=== PATIENT | male | born 1960 | race American Indian/Alaskan Native ===

== ENCOUNTER 2019-07-14 18:20 | Inpatient (IN) | payer MEDICARE ==
[2019-07-14] MEDS ORDERED: FAMOTIDINE 20 MG/2 ML INJ IV ONE (18:33)
[2019-07-14] MEDS ORDERED: diphenhydrAMINE 50 MG/ML VIAL ONE (18:34)
[2019-07-14] MEDS ORDERED: dexAMETHasone 20 MG/5 ML VIAL ONE ×2 (18:35→20:07)
[2019-07-14] MEDS ORDERED: diphenhydrAMINE 50 MG/ML VIAL IV ONE (18:38)
[2019-07-14] MEDS ORDERED: DEXTROSE 50% IN WATER (25GM) 50 ML SYRINGE IV ONE ×3 (18:38→18:42)
[2019-07-14] MEDS ORDERED: dexAMETHasone 20 MG/5 ML VIAL IV ONE (18:39)
[2019-07-14] MEDS ORDERED: PROPOFOL 1,000 MG/100 ML BOTTLE IV ONE (18:43)
[2019-07-14] MEDS ORDERED: LORazepam 2 MG/ML VIAL ONE (18:43)
[2019-07-14] MEDS ORDERED: LORazepam 2 MG/ML VIAL IV ONE (18:44)
[2019-07-14] MEDS ORDERED: ETOMIDATE 20 MG/10 ML INJ IV ONE (18:46)
[2019-07-14] MEDS ORDERED: SUCCINYLCHOLINE CHLORIDE 200 MG/10 ML INJ MDV IV ONE ×3 (18:47→19:09)
[2019-07-14] MEDS ORDERED: SODIUM CHLORIDE 0.9% 1000 ML 2,000 ML ONE (18:53)
[2019-07-14] MEDS ORDERED: PROPOFOL 200 MG/20 ML VIAL IV ONE ×4 (18:53→19:26)
[2019-07-14] MEDS ORDERED: SODIUM CHLORIDE 0.9% 1000 ML 1,000 ML IV ONE ×2 (19:09→19:30)
[2019-07-14] MEDS ORDERED: GLYCOPYRROLATE 0.4 MG/2 ML INJ IV ONE (19:50)
--- NOTE | 2019-07-14 20:22 | Emergency Department Report ---
ED General Adult HPI - General Chief complaint: Dyspnea/Respdistress Stated complaint: DIFFICULTY SWALLOWING Time Seen by Provider: 07/14/19 19:38 Source: patient, EMS Mode of arrival: Stretcher Limitations: No Limitations - History of Present Illness Initial comments: This is a 59-year-old male who states he's been on lisinopril for 15 years. Approximately one hour prior to arrival he developed swelling of his neck and somewhat gurgling respirations. He had a voice change. He complains of some difficulty in breathing. He is not frankly stridorous but is having trouble with his secretions. He has never had anything like this before. Associated Symptoms: denies other symptoms - Related Data Allergies Allergy/AdvReac Type Severity Reaction Status Date / Time lisinopril Allergy Angioedema Verified 07/14/19 19:17 ED Review of Systems ROS: Stated complaint: DIFFICULTY SWALLOWING Other details as noted in HPI Constitutional: denies: chills, fever Eyes: denies: eye pain, eye discharge, vision change ENT: other (difficulty with secretions). denies: ear pain, throat pain Respiratory: shortness of breath. denies: cough, wheezing Cardiovascular: denies: chest pain, palpitations Endocrine: no symptoms reported Gastrointestinal: denies: abdominal pain, nausea, diarrhea Genitourinary: denies: urgency, dysuria Musculoskeletal: denies: back pain, joint swelling, arthralgia Skin: denies: rash, lesions Neurological: denies: headache, weakness, paresthesias Psychiatric: denies: anxiety, depression Hematological/Lymphatic: denies: easy bleeding, easy bruising ED Past Medical Hx - Past Medical History Previous Medical History?: Yes Hx Hypertension: Yes - Social History Smoking Status: Unknown if ever smoked ED Physical Exam - General Limitations: Physical Limitation General appearance: obese - Head Head exam: Present: atraumatic, normocephalic - Eye Eye exam: Absent: scleral icterus - ENT ENT exam: Present: other (posterior pharynx looks slightly edematous) - Neck Neck exam: Present: other (some edema noted Submandibular area.. Difficulty with secretions noted no adrienne drooling.) - Respiratory Respiratory exam: Present: normal lung sounds bilaterally. Absent: respiratory distress - Cardiovascular Cardiovascular Exam: Present: regular rate, normal rhythm. Absent: systolic murmur, diastolic murmur, rubs, gallop - GI/Abdominal GI/Abdominal exam: Present: soft. Absent: distended, tenderness, guarding, rebound, rigid - Extremities Exam Extremities exam: Present: normal inspection - Back Exam Back exam: Present: normal inspection - Neurological Exam Neurological exam: Present: alert, oriented X3. Absent: CN II-XII intact, motor sensory deficit - Psychiatric Psychiatric exam: Present: normal mood, anxious ED Course Vital Signs 07/14/19 07/14/19 07/14/19 18:39 18:40 18:45 Pulse Rate 76 76 76 Respiratory 19 17 19 Rate Blood Pressure 126/63 126/63 O2 Sat by Pulse 100 100 100 Oximetry 07/14/19 07/14/19 07/14/19 18:50 18:56 19:00 Pulse Rate 63 118 H 103 H Respiratory 16 21 15 Rate Blood Pressure 130/58 157/84 152/84 O2 Sat by Pulse 48 L 100 100 Oximetry 07/14/19 07/14/19 07/14/19 19:06 19:10 19:15 Pulse Rate 96 H 123 H 119 H Respiratory 16 26 H 15 Rate Blood Pressure 152/84 79/41 242/135 O2 Sat by Pulse 71 L 90 81 L Oximetry 07/14/19 07/14/19 07/14/19 19:20 19:25 19:30 Pulse Rate 110 H 98 H 97 H Respiratory 11 L 11 L 10 L Rate Blood Pressure 135/86 118/84 85/61 O2 Sat by Pulse 100 100 100 Oximetry 07/14/19 07/14/19 07/14/19 19:35 19:40 19:45 Pulse Rate 85 84 86 Respiratory 13 16 18 Rate Blood Pressure 104/53 104/53 114/63 O2 Sat by Pulse 100 100 98 Oximetry 07/14/19 07/14/19 07/14/19 19:50 19:55 20:00 Pulse Rate 85 84 79 Respiratory 17 15 15 Rate Blood Pressure 121/72 136/69 123/75 O2 Sat by Pulse 100 100 Oximetry 07/14/19 07/14/19 07/14/19 20:06 20:10 20:16 Pulse Rate 76 75 81 Respiratory 17 20 16 Rate Blood Pressure 111/63 99/66 117/75 O2 Sat by Pulse 100 100 96 Oximetry 07/14/19 07/14/19 07/14/19 20:20 20:26 20:30 Pulse Rate 77 78 75 Respiratory 17 14 16 Rate Blood Pressure 125/83 138/92 151/101 O2 Sat by Pulse 97 100 100 Oximetry 07/14/19 07/14/19 07/14/19 20:36 20:40 20:46 Pulse Rate 73 76 77 Respiratory 11 L 13 15 Rate Blood Pressure 158/90 151/104 170/86 O2 Sat by Pulse 100 100 100 Oximetry 07/14/19 07/14/19 07/14/19 20:50 20:55 21:00 Pulse Rate 76 77 72 Respiratory 14 14 16 Rate Blood Pressure 164/84 149/70 144/82 O2 Sat by Pulse 100 100 100 Oximetry 07/14/19 07/14/19 07/14/19 21:06 21:10 21:16 Pulse Rate 73 75 73 Respiratory 13 17 16 Rate Blood Pressure 156/94 156/95 167/101 O2 Sat by Pulse 100 100 100 Oximetry 07/14/19 07/14/19 07/14/19 21:20 21:25 21:28 Pulse Rate 75 74 73 Respiratory 20 21 20 Rate Blood Pressure 179/95 176/89 172/84 O2 Sat by Pulse 100 100 100 Oximetry 07/14/19 21:30 Pulse Rate 72 Respiratory 19 Rate Blood Pressure 159/102 O2 Sat by Pulse 95 Oximetry - Reevaluation(s) Reevaluation #1: The patient anatomically appear to be an obvious difficult airway he denied his baseline. I prepared him for elective intubation. I also immediately engaged anesthesia services (2 anesthesiologists) to assist in the procedure. Initially we attempted direct laryngoscopy. This resulted in no airway view. Intubation wasn't possible via that route. We continued to assist the patient's airway. Next we attempted direct laryngoscopy which was initially successful placing a #8 tube. However the balloon ruptured in the attempt. One of the anesthesiologists attempted to change the tube using a bougie. This unfortunately resulted and dislodgment. We replaced an LMA. We attempted again with a glidescope. However the view was limited and the airway was too anterior and poorly visualized. We replaced the LMA. We attempted fiberoptic intubation. However the scope could not be passed into the airway which was again to anterior and poorly visualized using both the scope screen and the glidescope screen. We replaced the LMA. She had been given steroids Pepcid and Benadryl prior to the procedure. We found that he could be ventilated well using the LMA. We achieved pulse oximetries of 100% repeatedly with the LMA. While the patient was "satting" 100% I attempted to obtain consultation for definitive airway (surgical airway). It did not seem appropriate to perform a cricothyrotomy on the patient in the emergency department. This is because he was ventilating well with the LMA and achieving sats of 100%. He appeared to me to be a candidate for safe transfer after at least 30 minutes of successful ventilation without desaturation. I attempted transfer to [facility] and the [employer] system. Cowan was on saturation/bypass. The ENT surgeon at [facility] declined the [place]. He stated we should perform a cricothyrotomy here. Neither the anesthesiologists nor myself thought that was prudent. We were prepared to transfer the patient to the operating room for a definitive airway. However, no surgeon was available at this facility to perform a surgical airway in the operating room. Fortunately, the patient's airway situation appeared to be improving. I decided to remove the LMA and place the patient on BiPAP. The patient did wake up well from his propofol. I removed the LMA. The patient is placed on BiPAP. This has successfully oxygenated the patient. Blood gas was ordered. I discussed this case again with anesthesia. They recommended that we give him a unit of FFP. I will order that. The patient is very been admitted by the hospitalist service. He is currently in stable condition. 07/14/19 22:54 Reevaluation #2: Reexamination patient is able follow commands. He is doing well on BiPAP. Does not appear to be in any distress. He is resting comfortably. His blood gas was reasonably adequate. 07/14/19 23:21 ED Medical Decision Making - Lab Data Result diagrams: 07/14/19 20:59 07/14/19 20:59 Laboratory Results - last 24 hr 07/14/19 07/14/19 07/14/19 19:24 20:59 20:59 WBC 12.9 H RBC 5.44 H Hgb 12.0 Hct 39.0 MCV 72 L MCH 22 L MCHC 31 L RDW 17.4 H Plt Count 199 Lymph % (Auto) 6.2 L [place] % (Auto) 3.4 Eos % (Auto) 0.4 Baso % (Auto) 0.2 Lymph # 0.8 L [place] # 0.4 Eos # 0.0 Baso # 0.0 Seg Neutrophils % 89.8 H Seg Neutrophils # 11.6 H PT 13.6 INR 1.05 APTT 22.5 L POC ABG pH POC ABG pCO2 POC ABG pO2 POC ABG HCO3 POC ABG Total CO2 POC ABG O2 Sat POC ABG Base Excess FiO2 Sodium Potassium Chloride Carbon Dioxide Anion Gap BUN Creatinine Estimated GFR BUN/Creatinine Ratio Glucose POC Glucose 151 H Calcium Magnesium Total Bilirubin Direct Bilirubin Indirect Bilirubin AST ALT Alkaline Phosphatase Total Creatine Kinase CK-MB (CK-2) CK-MB (CK-2) Rel Index NT-Pro-B Natriuret Pep Total Protein Albumin Albumin/Globulin Ratio 07/14/19 07/14/19 20:59 22:28 WBC RBC Hgb Hct MCV MCH MCHC RDW Plt Count Lymph % (Auto) [place] % (Auto) Eos % (Auto) Baso % (Auto) Lymph # [place] # Eos # Baso # Seg Neutrophils % Seg Neutrophils # PT INR APTT POC ABG pH 7.326 L POC ABG pCO2 46.1 H POC ABG pO2 194 H POC ABG HCO3 24.1 POC ABG Total CO2 25 POC ABG O2 Sat 100 POC ABG Base Excess -2 FiO2 45 Sodium 133 L Potassium 4.2 Chloride 99.9 Carbon Dioxide 21 L Anion Gap 16 BUN 20 Creatinine 1.4 Estimated GFR > 60 BUN/Creatinine Ratio 14 Glucose 81 POC Glucose Calcium 8.4 Magnesium 1.90 Total Bilirubin 0.40 Direct Bilirubin < 0.2 Indirect Bilirubin 0.2 AST 23 ALT 11 Alkaline Phosphatase 88 Total Creatine Kinase 517 H CK-MB (CK-2) 5.1 H CK-MB (CK-2) Rel Index 0.9 NT-Pro-B Natriuret Pep 138.2 Total Protein 8.2 Albumin 4.1 Albumin/Globulin Ratio 1.0 Critical Care Time: Yes Critical care time in (mins) excluding proc time.: 120 Critical care attestation.: If time is entered above; I have spent that time in minutes in the direct care of this critically ill patient, excluding procedure time. ED Disposition Clinical Impression: Angioedema due to angiotensin converting enzyme inhibitor (DALE-I) Disposition: OP ADMIT IP TO THIS HOSP Is pt being admited?: Yes Does the pt Need Aspirin: No Condition: Stable Referrals: PRIMARY CARE, [Primary Care Provider] - 3-5 Days Time of Disposition: 23:23
[2019-07-14] MEDS ORDERED: LIP THERAPY VASELINE TP PRN (20:25)
[2019-07-14] MEDS ORDERED: MINERAL OIL/PETROLATUM, WHITE OPHTH OINT 3.5 GM OU PRN (20:25)
[2019-07-14] MEDS ORDERED: methylPREDNISolone Sod Succinate 125 MG/2 ML INJ IV ONE ×2 (20:26→20:52)
[2019-07-14] MEDS ORDERED: PROPOFOL 1,000 MG/100 ML BOTTLE IV SCH (21:00)
--- NOTE | 2019-07-14 21:13 | Event Note ---
Date: 07/14/19 Called to ED 22 by MD Zarate to assist with airway management of 59/yr male with angioedema. MD Zarate attempted to place an ET tube via DL. His first attempt failed. Pt noted with desaturation. The Pt was also noted with a swollen and bloody airway from the first attempt. Anesthesia took over and attempted to mask ventilate with an oral airway in place but was not obtaining satisfactory ventilation despite meds given. Subsequently an LMA 5 was used to regain adequate air exchange. The O2 saturation was brought to 100% and an 8.0 ET tube was successfully passed through the vocal cords under the use of a glidescope. The ET tube's cuff malfunctioned and anesthesia was unsuccessful at exchanging a new 8.0 ET tube via a bougie. An LMA 5 was replaced and adequate ventilation was resumed. The O2 saturation was noted at 100% when another unsuccessful Glidescope intubation and fiber optics intubation was attempted. MD Zarate made another attempt to DL after anesthesia was unsuccessful. MD Zarate placed an NG tube afterwards and removed it after failing to place it. Blood was noted in the nasal passage. Subsequently, MD Zarate decided to wake the pt up and place him on bipap while attempting to transfer the pt to another facility. Several facilities denied transfer because of diverted status. MD Riddle from general surgery was called in for a consult for tracheotomy . The pt was reevaluated by anesthesia at 2119 and was alert and oriented x 3. He was also noted with stable vitals and adequate ventilation while on bipap. He denied any pain or difficulty with breathing.
[2019-07-14 21:19] LABS: Mean Corpuscular Volume 72 fl (84-94); Red Blood Count 5.44 M/mm3 (3.65-5.03)
[2019-07-14 21:20] LABS: Basophils % (Auto) 0.2 % (0.0-1.8); Eosinophils % (Auto) 0.4 % (0.0-4.3); Lymphocytes # (Auto) 0.8 K/mm3 (1.2-5.4); Lymphocytes % (Auto) 6.2 % (13.4-35.0); Mean Corpuscular HGB Conc 31 % (32-34); Monocytes # (Auto) 0.4 K/mm3 (0.0-0.8); Monocytes % (Auto) 3.4 % (0.0-7.3); Platelet Count 199 K/mm3 (140-440); Red Cell Distribution Width 17.4 % (13.2-15.2)
[2019-07-14 21:27] LABS: INR 1.05 (0.87-1.13); Partial Thromboplastin Time 22.5 Sec. (24.2-36.6)
[2019-07-14 21:29] LABS: Creatine Kinase MB 5.1 ng/mL (0.0-4.0)
[2019-07-14 21:31] LABS: Alanine Aminotransferase 11 units/L (7-56); Albumin 4.1 g/dL (3.9-5); BUN/Creatinine Ratio 14; Blood Urea Nitrogen 20 mg/dL (9-20); Calcium 8.4 mg/dL (8.4-10.2); Hemolysis Index 22
[2019-07-14 21:33] LABS: Bilirubin,Direct < 0.2 mg/dL (0-0.2)
[2019-07-14] MEDS ORDERED: ONDANSETRON 4 MG/2 ML INJ IV PRN (21:37)
[2019-07-14] MEDS ORDERED: ACETAMINOPHEN 325 MG TAB PO PRN (21:37)
[2019-07-14] MEDS ORDERED: diphenhydrAMINE 50 MG/ML VIAL IV PRN (21:44)
[2019-07-14] MEDS ORDERED: DEXTROSE 50% IN WATER (25GM) 50 ML SYRINGE IV PRN (21:45)
--- NOTE | 2019-07-14 21:52 | XRay Report ---
CHEST 1 VIEW INDICATION / CLINICAL INFORMATION: CRYSTAL. COMPARISON: None available. FINDINGS: SUPPORT DEVICES: None. HEART / MEDIASTINUM: No significant abnormality. LUNGS / PLEURA: No significant pulmonary or pleural abnormality. No pneumothorax. ADDITIONAL FINDINGS: No significant additional findings. IMPRESSION: 1. No acute findings. Signer Name: Steve Gonzalez MD Signed: 07/14/2019 9:47 PM Workstation Name: [id number]
[2019-07-14] MEDS ORDERED: SODIUM CHLORIDE 0.9% 1000 ML 1,000 ML IV SCH (22:00)
[2019-07-14] MEDS ORDERED: MORPHINE 2 MG/1 ML INJ IV PRN (22:48)
--- NOTE | 2019-07-14 23:08 | History and Physical Report ---
History of Present Illness Date of examination: 07/14/19 Date of admission: 07/14/19 21:37 Chief complaint: SOB History of present illness: Patient is a 59-year-old -Swiss male with history of hypertension and DM2 who presented to the ED on account of a day history of worsening shortness of breath. Patient stated that he woke from sleep with inability to breathe and feeling like his throat was closing in on him. He reported having some lips swelling during the day. He also complained of dry throat. He denied chest pain, palpitation, fever, chills, cough, headaches, lightheadedness, syncope or loss of consciousness. Pt denies recent exposure to food allergen. However, he admits to 15years of lisinopril use without prior issues. In the ED, several attempts were made to intubate the patient which were unsuccessful. Subsequently, patient improved after IV steroids. He was then placed on BiPAP and has been saturating well. Past History Past Medical History: diabetes, hypertension, other (morbid obesity) Past Surgical History: appendectomy Social history: smoking (patient is an ex-cigarette smoker. He quit in 1988), alcohol abuse (patient abused alcohol for 30 years but quit in 2012), other (He smoked crack cocaine and marijuana for 2yrs but quit in 1988) Family history: diabetes (mother and sister ) Medications and Allergies Allergies Allergy/AdvReac Type Severity Reaction Status Date / Time lisinopril Allergy Angioedema Verified 07/14/19 19:17 Active Meds: Active Medications Acetaminophen (Tylenol) 650 mg PO Q4H PRN PRN Reason: Pain MILD(1-3)/Fever >100.5/JUAREZ Albuterol/Ipratropium (Duoneb *Not For Prn Use*) 1 ampul IH Q6HRT JANEL Dextrose (D50w (25gm) Syringe) 50 ml IV Q30MIN PRN; Protocol PRN Reason: Hypoglycemia Diphenhydramine HCl (Benadryl) 50 mg IV Q6H PRN PRN Reason: Itching Enoxaparin Sodium (Enoxaparin) 40 mg SUB-Q QDAY JANEL Famotidine (Pepcid) 20 mg IV BID JANEL Hydrophilic Ointment (Vaseline Lip Therapy) 1 applic TP Q2HR PRN PRN Reason: Dry Lips Propofol (Diprivan 10 Mg/Ml) 1,000 mg in 100 mls @ 5.46 mls/hr IV TITR JANEL; Protocol Last Admin: 07/14/19 18:58 Dose: 5 mcg/kg/min, 5.46 mls/hr Documented by: Sodium Chloride (Nacl 0.9% 1000 Ml) 1,000 mls @ 100 mls/hr IV DIRECT JANEL Insulin Human Lispro (Humalog) 0 unit SUB-Q ACHS JANEL; Protocol Methylprednisolone Sodium Succinate (Solu-Medrol) 125 mg IV Q6HR JANEL Morphine Sulfate (Morphine) 2 mg IV Q6H PRN PRN Reason: Pain, Moderate (4-6) Multi-Ingred Cream/Lotion/Oil/Oint (Artificial Tears Ophth Oint) 1 applic OU Q4HR PRN PRN Reason: Dry Eye(s) Ondansetron HCl (Zofran) 4 mg IV Q8H PRN PRN Reason: Nausea And Vomiting Sodium Chloride (Sodium Chloride Flush Syringe 10 Ml) 10 ml IV BID JANEL Sodium Chloride (Sodium Chloride Flush Syringe 10 Ml) 10 ml IV PRN PRN PRN Reason: LINE FLUSH Review of Systems All systems: negative (All other systems reviewed with the patient and are negative unless otherwise stated above) Exam - Constitutional Vitals: Temp Pulse Resp BP Pulse Ox 72 19 159/102 95 07/14/19 21:30 07/14/19 21:30 07/14/19 21:30 07/14/19 21:30 General appearance: Present: no acute distress, other (on BIPAP) - EENT Eyes: Present: PERRL, EOM intact ENT: hearing intact, other (swollen tongue and lips) - Neck Neck: Present: supple, normal ROM - Respiratory Respiratory effort: normal Respiratory: bilateral: CTA, diminished - Cardiovascular Rhythm: regular Heart Sounds: Present: S1 & S2 - Extremities Extremities: pulses symmetrical, No edema - Abdominal General gastrointestinal: Present: soft, non-tender, normal bowel sounds Male genitourinary: Present: deferred - Rectal Rectal Exam: deferred - Integumentary Integumentary: Present: clear, warm, dry - Musculoskeletal Musculoskeletal: strength equal bilaterally - Psychiatric Psychiatric: appropriate mood/affect, intact judgment & insight - Neurologic Neurologic: CNII-XII intact Results - Labs CBC & Chem 7: 07/14/19 20:59 07/14/19 20:59 Labs: Laboratory Last Values WBC 12.9 K/mm3 (4.5-11.0) H 07/14/19 20:59 RBC 5.44 M/mm3 (3.65-5.03) H 07/14/19 20:59 Hgb 12.0 gm/dl (11.8-15.2) 07/14/19 20:59 Hct 39.0 % (35.5-45.6) 07/14/19 20:59 MCV 72 fl (84-94) L 07/14/19 20:59 MCH 22 pg (28-32) L 07/14/19 20:59 MCHC 31 % (32-34) L 07/14/19 20:59 RDW 17.4 % (13.2-15.2) H 07/14/19 20:59 Plt Count 199 K/mm3 (140-440) 07/14/19 20:59 Lymph % (Auto) 6.2 % (13.4-35.0) L 07/14/19 20:59 [place] % (Auto) 3.4 % (0.0-7.3) 07/14/19 20:59 Eos % (Auto) 0.4 % (0.0-4.3) 07/14/19 20:59 Baso % (Auto) 0.2 % (0.0-1.8) 07/14/19 20:59 Lymph # 0.8 K/mm3 (1.2-5.4) L 07/14/19 20:59 [place] # 0.4 K/mm3 (0.0-0.8) 07/14/19 20:59 Eos # 0.0 K/mm3 (0.0-0.4) 07/14/19 20:59 Baso # 0.0 K/mm3 (0.0-0.1) 07/14/19 20:59 Seg Neutrophils % 89.8 % (40.0-70.0) H 07/14/19 20:59 Seg Neutrophils # 11.6 K/mm3 (1.8-7.7) H 07/14/19 20:59 PT 13.6 Sec. (12.2-14.9) 07/14/19 20:59 INR 1.05 (0.87-1.13) 07/14/19 20:59 APTT 22.5 Sec. (24.2-36.6) L 07/14/19 20:59 POC ABG pH 7.326 (7.35-7.45) L 07/14/19 22:28 POC ABG pCO2 46.1 (35-45) H 07/14/19 22:28 POC ABG pO2 194 (80-105) H 07/14/19 22:28 POC ABG HCO3 24.1 (22-26 mml/L) 07/14/19 22:28 POC ABG Total CO2 25 (23-27mmol/L) 07/14/19 22:28 POC ABG O2 Sat 100 07/14/19 22:28 POC ABG Base Excess -2 ((-2) - (+3)mmol/L) 07/14/19 22:28 FiO2 45 % 07/14/19 22:28 Sodium 133 mmol/L (137-145) L 07/14/19 20:59 Potassium 4.2 mmol/L (3.6-5.0) 07/14/19 20:59 Chloride 99.9 mmol/L (98-107) 07/14/19 20:59 Carbon Dioxide 21 mmol/L (22-30) L 07/14/19 20:59 Anion Gap 16 mmol/L 07/14/19 20:59 BUN 20 mg/dL (9-20) 07/14/19 20:59 Creatinine 1.4 mg/dL (0.8-1.5) 07/14/19 20:59 Estimated GFR > 60 ml/min 07/14/19 20:59 BUN/Creatinine Ratio 14 % 07/14/19 20:59 Glucose 81 mg/dL (75-100) 07/14/19 20:59 POC Glucose 151 (70-105) H 07/14/19 19:24 Calcium 8.4 mg/dL (8.4-10.2) 07/14/19 20:59 Magnesium 1.90 mg/dL (1.7-2.3) 07/14/19 20:59 Total Bilirubin 0.40 mg/dL (0.1-1.2) 07/14/19 20:59 Direct Bilirubin < 0.2 mg/dL (0-0.2) 07/14/19 20:59 Indirect Bilirubin 0.2 mg/dL 07/14/19 20:59 AST 23 units/L (5-40) 07/14/19 20:59 ALT 11 units/L (7-56) 07/14/19 20:59 Alkaline Phosphatase 88 units/L (35-129) 07/14/19 20:59 Total Creatine Kinase 517 units/L (55-170) H 07/14/19 20:59 CK-MB (CK-2) 5.1 ng/mL (0.0-4.0) H 07/14/19 20:59 CK-MB (CK-2) Rel Index 0.9 (0-4) 07/14/19 20:59 NT-Pro-B Natriuret Pep 138.2 pg/mL (0-900) 07/14/19 20:59 Total Protein 8.2 g/dL (6.3-8.2) 07/14/19 20:59 Albumin 4.1 g/dL (3.9-5) 07/14/19 20:59 Albumin/Globulin Ratio 1.0 % 07/14/19 20:59 Assessment and Plan Assessment and plan: Angioedema due to ACEI use -Continue IV steroids, Famotidine and PRN Benadryl Acute respiratory failure with hypoxia -Continue BIPAP and taper off as needed -Continue neb tx Hyponatremia -On IV fluid, will monitor sodium level Leukocytosis -Probably reactive, will monitor wbc level Metabolic acidosis -on IVF, will monitor level HTN -Stable -ON PRN IV hydralazine DM2 -Stable -On SSI DVT prophylaxis: Lovenox GI prophylaxis: Famotidine Disposition: Patient will be admitted to the ICU for close monitoring. I spent 45 minutes providing critical care to this seriously ill patient who requires frequent reassessments of his respiratory status.
[2019-07-14] MEDS ORDERED: SODIUM CHLORIDE 0.9% 500 ML 500 ML IV ONE (23:20)
[2019-07-14] MEDS ORDERED: hydrALAZINE 20 MG/1 ML INJ IV PRN (23:38)
[2019-07-14] MEDS: INSULIN LISPRO 100 UNIT/ML SUB-Q SCH (23:48)
[2019-07-15] MEDS: IPRATROPIUM/ALBUTEROL SULFATE 3 ML AMPUL.NEB IH SCH ×5 (03:09→22:59)
[2019-07-15] MEDS ORDERED: IPRATROPIUM/ALBUTEROL SULFATE 3 ML AMPUL.NEB IH ONE (03:10)
[2019-07-15 06:08] LABS: BUN/Creatinine Ratio 15; Blood Urea Nitrogen 21 mg/dL (9-20); Calcium 9.1 mg/dL (8.4-10.2); Hemolysis Index 12
[2019-07-15 06:27] LABS: ABG Methemoglobin 0.5 % (0.0-1.5); ABG Oxygen Saturation 97.5 % (95.0-99.0); ABG PH 7.377 pH Units (7.350-7.450); ABG PO2 99.8 mm Hg (80.0-90.0)
[2019-07-15] MEDS: INSULIN LISPRO 100 UNIT/ML SUB-Q SCH ×4 (08:45→22:03)
[2019-07-15] MEDS ORDERED: FAMOTIDINE 20 MG/2 ML INJ IV ONE (10:01)
[2019-07-15] MEDS ORDERED: ENOXAPARIN 40 MG/0.4 ML INJ SUB-Q ONE (10:01)
[2019-07-15] MEDS ORDERED: SODIUM CHLORIDE P/F VIAL 10 ML 10 ML ONE (10:01)
[2019-07-15] MEDS: ENOXAPARIN 40 MG/0.4 ML INJ SUB-Q SCH (10:04)
[2019-07-15] MEDS: FAMOTIDINE 20 MG/2 ML INJ IV SCH ×2 (10:05→21:22)
--- NOTE | 2019-07-15 11:38 | Progress Note ---
Assessment and Plan Patient is a 59-year-old -[place] male with history of hypertension and DM2 who presented to the ED on account of a day history of worsening shortness of breath. Patient stated that he woke from sleep with inability to breathe and feeling like his throat was closing in on him. He reported having some lips swelling during the day. He also complained of dry throat. He denied chest pain, palpitation, fever, chills, cough, headaches, lightheadedness, syncope or loss of consciousness. Pt denies recent exposure to food allergen. However, he admits to 15years of lisinopril use without prior issues. In the ED, several attempts were made to intubate the patient which were unsuccessful. Subsequently, patient improved after IV steroids. He was then placed on BiPAP and has been saturating well. Angioedema due to ACEI use Discontinue ACEI -Continue IV steroids, Famotidine and PRN Benadryl Acute respiratory failure with hypoxia -Continue BIPAP and taper off as needed -Continue neb tx Hyponatremia - improving -On IV fluid, will monitor sodium level Leukocytosis -Probably reactive, will monitor wbc level Metabolic acidosis -on IVF, will monitor level HTN -Stable -ON PRN IV hydralazine DM2 -Stable -On SSI Morbid obesity with BMI of 57.6 - Last time and patient counseling done DVT prophylaxis: Lovenox GI prophylaxis: Famotidine Time spent: 35 minutes. Subjective Date of service: 07/15/19 Principal diagnosis: acute respir failure with hypoxia, angioedema, hyponatremia, met acidosis Interval history: Patient seen and examined. Swelling of the lips and the throat improving. Still on BiPAP. Objective - Exam Narrative Exam: Constitutional: Well-nourished well-developed. Obese, on BiPAP Head: Normocephalic atraumatic Eyes: Pupils are equal round and reactive to light Nose: No enlarged turbinates, no septal deviation. Mouth: Moist mucous membranes. Neck: Supple no thyromegaly. No bruit. No JVD Heart: Regular rate and rhythm, S1-S2 normal. No rubs murmurs or gallop Lungs: Clear to auscultation bilaterally. no rales or rhonchi Abdomen: Soft, nontender. Bowel sound are present. Extremities: No edema, no cyanosis, no clubbing. Neuro: Alert oriented Oriented x3. No focal sensory or motor deficit. Skin: No rashes or hyperpigmented spots Musculoskeletal system: No joint pain or swelling Hematological: No petechia or subcutanous hemorrhages. Immunological: No multiple septic spots on the skin Lymphatic: No generalized lymphadenopathy Psychiatry: Euthymic. Calm. - Constitutional Vitals: Vital Signs - 12hr 07/14/19 07/14/19 07/14/19 23:35 23:39 23:41 Temperature Pulse Rate 68 70 71 Pulse Rate [ Bilateral] Respiratory 13 19 15 Rate Respiratory Rate [Bilateral ] Blood Pressure 197/85 186/79 189/86 Blood Pressure [Left] O2 Sat by Pulse 100 99 100 Oximetry 07/14/19 07/14/19 07/14/19 23:45 23:51 23:55 Temperature Pulse Rate 68 71 69 Pulse Rate [ Bilateral] Respiratory 15 15 17 Rate Respiratory Rate [Bilateral ] Blood Pressure 201/82 187/94 182/89 Blood Pressure [Left] O2 Sat by Pulse 100 99 100 Oximetry 07/15/19 07/15/19 07/15/19 00:00 00:05 00:11 Temperature Pulse Rate 67 64 70 Pulse Rate [ Bilateral] Respiratory 13 14 15 Rate Respiratory Rate [Bilateral ] Blood Pressure 189/86 183/99 193/91 Blood Pressure [Left] O2 Sat by Pulse 99 100 100 Oximetry 07/15/19 07/15/19 07/15/19 00:15 00:21 00:25 Temperature Pulse Rate 75 74 73 Pulse Rate [ Bilateral] Respiratory 15 19 15 Rate Respiratory Rate [Bilateral ] Blood Pressure 200/99 200/99 184/91 Blood Pressure [Left] O2 Sat by Pulse 100 100 100 Oximetry 07/15/19 07/15/19 07/15/19 00:30 00:35 00:41 Temperature Pulse Rate 73 71 67 Pulse Rate [ Bilateral] Respiratory 15 14 13 Rate Respiratory Rate [Bilateral ] Blood Pressure 169/97 184/91 185/92 Blood Pressure [Left] O2 Sat by Pulse 99 100 100 Oximetry 07/15/19 07/15/19 07/15/19 00:45 00:51 00:55 Temperature Pulse Rate 71 74 69 Pulse Rate [ Bilateral] Respiratory 14 16 17 Rate Respiratory Rate [Bilateral ] Blood Pressure 194/91 182/95 180/99 Blood Pressure [Left] O2 Sat by Pulse 99 99 100 Oximetry 07/15/19 07/15/19 07/15/19 01:01 01:05 01:08 Temperature Pulse Rate 72 74 74 Pulse Rate [ Bilateral] Respiratory 18 18 17 Rate Respiratory Rate [Bilateral ] Blood Pressure 202/88 202/88 Blood Pressure [Left] O2 Sat by Pulse 100 99 99 Oximetry 07/15/19 07/15/19 07/15/19 01:11 01:15 01:21 Temperature Pulse Rate 75 79 78 Pulse Rate [ Bilateral] Respiratory 17 22 18 Rate Respiratory Rate [Bilateral ] Blood Pressure 202/88 202/88 196/97 Blood Pressure [Left] O2 Sat by Pulse 99 97 100 Oximetry 07/15/19 07/15/19 07/15/19 01:25 01:30 01:35 Temperature Pulse Rate 70 70 72 Pulse Rate [ Bilateral] Respiratory 12 14 14 Rate Respiratory Rate [Bilateral ] Blood Pressure 188/87 189/90 197/90 Blood Pressure [Left] O2 Sat by Pulse 100 99 99 Oximetry 07/15/19 07/15/19 07/15/19 01:41 01:45 03:14 Temperature Pulse Rate 70 67 Pulse Rate [ 69 Bilateral] Respiratory 14 13 Rate Respiratory 14 Rate [Bilateral ] Blood Pressure 186/82 177/84 Blood Pressure [Left] O2 Sat by Pulse 100 98 Oximetry 07/15/19 07/15/19 07/15/19 03:57 04:41 04:45 Temperature Pulse Rate 71 73 79 Pulse Rate [ Bilateral] Respiratory 14 16 13 Rate Respiratory Rate [Bilateral ] Blood Pressure 197/96 201/84 168/79 Blood Pressure [Left] O2 Sat by Pulse 100 100 97 Oximetry 07/15/19 07/15/19 07/15/19 04:51 04:55 05:00 Temperature Pulse Rate 67 78 76 Pulse Rate [ Bilateral] Respiratory 13 13 17 Rate Respiratory Rate [Bilateral ] Blood Pressure 173/84 172/85 152/92 Blood Pressure [Left] O2 Sat by Pulse 100 100 100 Oximetry 07/15/19 07/15/19 07/15/19 05:05 05:11 05:15 Temperature Pulse Rate 83 85 83 Pulse Rate [ Bilateral] Respiratory 10 L 14 14 Rate Respiratory Rate [Bilateral ] Blood Pressure 170/83 176/92 187/82 Blood Pressure [Left] O2 Sat by Pulse 96 100 99 Oximetry 07/15/19 07/15/19 07/15/19 05:21 05:25 05:30 Temperature Pulse Rate 85 75 87 Pulse Rate [ Bilateral] Respiratory 14 15 15 Rate Respiratory Rate [Bilateral ] Blood Pressure 181/91 182/86 187/93 Blood Pressure [Left] O2 Sat by Pulse 98 100 100 Oximetry 07/15/19 07/15/19 07/15/19 05:35 05:41 05:45 Temperature Pulse Rate 88 91 H 87 Pulse Rate [ Bilateral] Respiratory 17 17 19 Rate Respiratory Rate [Bilateral ] Blood Pressure 187/93 177/59 182/68 Blood Pressure [Left] O2 Sat by Pulse 99 100 100 Oximetry 07/15/19 07/15/19 07/15/19 05:51 05:55 06:00 Temperature Pulse Rate 87 85 76 Pulse Rate [ Bilateral] Respiratory 14 15 15 Rate Respiratory Rate [Bilateral ] Blood Pressure 139/73 172/65 163/102 Blood Pressure [Left] O2 Sat by Pulse 99 99 99 Oximetry 07/15/19 07/15/19 07/15/19 06:05 06:10 06:15 Temperature Pulse Rate 81 73 84 Pulse Rate [ Bilateral] Respiratory 13 14 14 Rate Respiratory Rate [Bilateral ] Blood Pressure 173/76 153/46 155/65 Blood Pressure [Left] O2 Sat by Pulse 100 100 100 Oximetry 07/15/19 07/15/19 07/15/19 06:21 06:25 06:30 Temperature Pulse Rate 86 86 85 Pulse Rate [ Bilateral] Respiratory 16 17 15 Rate Respiratory Rate [Bilateral ] Blood Pressure 161/62 165/68 170/74 Blood Pressure [Left] O2 Sat by Pulse 100 100 99 Oximetry 07/15/19 07/15/19 07/15/19 06:35 06:40 06:45 Temperature Pulse Rate 86 89 91 H Pulse Rate [ Bilateral] Respiratory 16 14 18 Rate Respiratory Rate [Bilateral ] Blood Pressure 174/72 141/47 139/63 Blood Pressure [Left] O2 Sat by Pulse 100 99 100 Oximetry 07/15/19 07/15/19 07/15/19 06:51 06:55 07:00 Temperature Pulse Rate 84 85 70 Pulse Rate [ Bilateral] Respiratory 13 13 14 Rate Respiratory Rate [Bilateral ] Blood Pressure 170/87 188/90 198/82 Blood Pressure [Left] O2 Sat by Pulse 100 100 99 Oximetry 07/15/19 07/15/19 07/15/19 07:05 07:11 07:15 Temperature 98.7 F Pulse Rate 84 90 87 Pulse Rate [ Bilateral] Respiratory 15 15 14 Rate Respiratory Rate [Bilateral ] Blood Pressure 200/86 175/97 176/73 Blood Pressure 176/73 [Left] O2 Sat by Pulse 100 100 96 Oximetry 07/15/19 07/15/19 07/15/19 07:21 07:23 07:25 Temperature Pulse Rate 87 85 84 Pulse Rate [ Bilateral] Respiratory 12 18 13 Rate Respiratory Rate [Bilateral ] Blood Pressure 160/78 152/78 152/78 Blood Pressure [Left] O2 Sat by Pulse 99 100 100 Oximetry 07/15/19 07/15/19 07/15/19 07:30 07:35 07:41 Temperature Pulse Rate 84 83 87 Pulse Rate [ Bilateral] Respiratory 27 H 21 31 H Rate Respiratory Rate [Bilateral ] Blood Pressure 153/75 176/78 174/70 Blood Pressure [Left] O2 Sat by Pulse 100 100 100 Oximetry 07/15/19 07/15/19 07/15/19 07:45 07:51 07:55 Temperature Pulse Rate 81 89 Pulse Rate [ Bilateral] Respiratory 23 27 H 28 H Rate Respiratory Rate [Bilateral ] Blood Pressure 186/77 163/65 163/65 Blood Pressure [Left] O2 Sat by Pulse 100 99 100 Oximetry 07/15/19 07/15/19 07/15/19 08:00 08:05 08:11 Temperature Pulse Rate 76 79 85 Pulse Rate [ Bilateral] Respiratory 33 H 30 H 34 H Rate Respiratory Rate [Bilateral ] Blood Pressure 158/73 158/71 160/68 Blood Pressure [Left] O2 Sat by Pulse 99 100 100 Oximetry 07/15/19 07/15/19 07/15/19 08:15 08:21 08:25 Temperature Pulse Rate 81 86 89 Pulse Rate [ Bilateral] Respiratory 24 13 16 Rate Respiratory Rate [Bilateral ] Blood Pressure 173/70 151/64 135/64 Blood Pressure [Left] O2 Sat by Pulse 99 100 99 Oximetry 07/15/19 07/15/19 07/15/19 08:30 08:35 08:41 Temperature Pulse Rate 81 84 89 Pulse Rate [ Bilateral] Respiratory 13 14 14 Rate Respiratory Rate [Bilateral ] Blood Pressure 151/60 168/76 114/69 Blood Pressure [Left] O2 Sat by Pulse 99 100 100 Oximetry 07/15/19 07/15/19 07/15/19 08:45 08:51 08:55 Temperature Pulse Rate 88 79 86 Pulse Rate [ Bilateral] Respiratory 12 11 L 13 Rate Respiratory Rate [Bilateral ] Blood Pressure 143/64 152/70 163/69 Blood Pressure [Left] O2 Sat by Pulse 100 100 100 Oximetry 07/15/19 07/15/19 07/15/19 09:00 09:05 09:11 Temperature Pulse Rate 74 89 88 Pulse Rate [ Bilateral] Respiratory 12 10 L 11 L Rate Respiratory Rate [Bilateral ] Blood Pressure 142/65 177/88 181/81 Blood Pressure [Left] O2 Sat by Pulse 100 100 100 Oximetry 07/15/19 07/15/19 07/15/19 09:15 09:20 09:25 Temperature Pulse Rate 90 89 83 Pulse Rate [ Bilateral] Respiratory 13 13 15 Rate Respiratory Rate [Bilateral ] Blood Pressure 177/86 168/76 131/56 Blood Pressure [Left] O2 Sat by Pulse 100 99 99 Oximetry 07/15/19 07/15/19 07/15/19 09:31 09:35 09:41 Temperature Pulse Rate 83 74 Pulse Rate [ Bilateral] Respiratory 14 19 Rate Respiratory Rate [Bilateral ] Blood Pressure 147/60 132/73 137/63 Blood Pressure [Left] O2 Sat by Pulse 100 98 99 Oximetry 07/15/19 07/15/19 07/15/19 09:45 09:50 09:55 Temperature Pulse Rate Pulse Rate [ Bilateral] Respiratory Rate Respiratory Rate [Bilateral ] Blood Pressure 133/56 146/70 139/69 Blood Pressure [Left] O2 Sat by Pulse 100 98 100 Oximetry 07/15/19 07/15/19 07/15/19 10:01 10:05 10:11 Temperature Pulse Rate Pulse Rate [ Bilateral] Respiratory Rate Respiratory Rate [Bilateral ] Blood Pressure 149/67 154/73 137/77 Blood Pressure [Left] O2 Sat by Pulse 100 100 99 Oximetry 07/15/19 07/15/19 10:15 10:20 Temperature Pulse Rate Pulse Rate [ Bilateral] Respiratory Rate Respiratory Rate [Bilateral ] Blood Pressure 145/62 148/79 Blood Pressure [Left] O2 Sat by Pulse 99 98 Oximetry - Labs CBC & Chem 7: 07/14/19 20:59 07/15/19 05:31 Labs: Abnormal lab results 07/14/19 07/14/19 07/14/19 Range/Units 19:24 20:59 20:59 WBC 12.9 H (4.5-11.0) K/mm3 RBC 5.44 H (3.65-5.03) M/mm3 MCV 72 L (84-94) fl MCH 22 L (28-32) pg MCHC 31 L (32-34) % RDW 17.4 H (13.2-15.2) % Lymph % (Auto) 6.2 L (13.4-35.0) % Lymph # 0.8 L (1.2-5.4) K/mm3 Seg Neutrophils % 89.8 H (40.0-70.0) % Seg Neutrophils # 11.6 H (1.8-7.7) K/mm3 APTT 22.5 L (24.2-36.6) Sec. POC ABG pH (7.35-7.45) POC ABG pCO2 (35-45) POC ABG pO2 (80-105) ABG pO2 (80.0-90.0) mm Hg ABG Hemoglobin (14.0-18.0) gm/dl Sodium (137-145) mmol/L Carbon Dioxide (22-30) mmol/L BUN (9-20) mg/dL POC Glucose 151 H (70-105) Total Creatine Kinase (55-170) units/L CK-MB (CK-2) (0.0-4.0) ng/mL 07/14/19 07/14/19 07/15/19 Range/Units 20:59 22:28 04:10 WBC (4.5-11.0) K/mm3 RBC (3.65-5.03) M/mm3 MCV (84-94) fl MCH (28-32) pg MCHC (32-34) % RDW (13.2-15.2) % Lymph % (Auto) (13.4-35.0) % Lymph # (1.2-5.4) K/mm3 Seg Neutrophils % (40.0-70.0) % Seg Neutrophils # (1.8-7.7) K/mm3 APTT (24.2-36.6) Sec. POC ABG pH 7.326 L (7.35-7.45) POC ABG pCO2 46.1 H (35-45) POC ABG pO2 194 H (80-105) ABG pO2 99.8 H (80.0-90.0) mm Hg ABG Hemoglobin 11.8 L (14.0-18.0) gm/dl Sodium 133 L (137-145) mmol/L Carbon Dioxide 21 L (22-30) mmol/L BUN (9-20) mg/dL POC Glucose (70-105) Total Creatine Kinase 517 H (55-170) units/L CK-MB (CK-2) 5.1 H (0.0-4.0) ng/mL 07/15/19 07/15/19 Range/Units 05:31 08:50 WBC (4.5-11.0) K/mm3 RBC (3.65-5.03) M/mm3 MCV (84-94) fl MCH (28-32) pg MCHC (32-34) % RDW (13.2-15.2) % Lymph % (Auto) (13.4-35.0) % Lymph # (1.2-5.4) K/mm3 Seg Neutrophils % (40.0-70.0) % Seg Neutrophils # (1.8-7.7) K/mm3 APTT (24.2-36.6) Sec. POC ABG pH (7.35-7.45) POC ABG pCO2 (35-45) POC ABG pO2 (80-105) ABG pO2 (80.0-90.0) mm Hg ABG Hemoglobin (14.0-18.0) gm/dl Sodium (137-145) mmol/L Carbon Dioxide 19 L (22-30) mmol/L BUN 21 H (9-20) mg/dL POC Glucose 119 H (70-105) Total Creatine Kinase (55-170) units/L CK-MB (CK-2) (0.0-4.0) ng/mL
--- NOTE | 2019-07-15 17:49 | Event Note ---
Date: 07/15/19 Reviewed the chart. Patient is awake and alert on nasal cannula in no distress. Will sign off.
[2019-07-16] MEDS: methylPREDNISolone Sod Succinate 125 MG/2 ML INJ IV SCH ×3 (01:34→11:08)
[2019-07-16] MEDS: IPRATROPIUM/ALBUTEROL SULFATE 3 ML AMPUL.NEB IH SCH ×3 (03:15→13:55)
[2019-07-16 05:55] LABS: Basophils % (Auto) 0.2 % (0.0-1.8); Hematocrit 35.4 % (35.5-45.6); Lymphocytes # (Auto) 0.6 K/mm3 (1.2-5.4); Mean Corpuscular HGB Conc 31 % (32-34); Mean Corpuscular Volume 71 fl (84-94); Monocytes # (Auto) 0.4 K/mm3 (0.0-0.8); Monocytes % (Auto) 3.9 % (0.0-7.3); Platelet Count 250 K/mm3 (140-440); Red Cell Distribution Width 17.1 % (13.2-15.2)
--- NOTE | 2019-07-16 08:54 | Discharge Summary ---
Providers - Providers Date of Admission: 07/14/19 21:37 Date of discharge: 07/16/19 Attending physician: PHILIPPE FUNK [employer] Primary care physician: INSPECTOR FIREARMS Hospitalization Reason for admission: acute respiratory failture Condition: Stable Pertinent studies: CXR Procedures: none Hospital course: Patient is a 59-year-old -[place] male with history of hypertension and DM2 who presented to the ED on account of a day history of worsening shortness of breath. Patient stated that he woke from sleep with inability to breathe and feeling like his throat was closing in on him. He reported having some lips swelling during the day. He also complained of dry throat. He denied chest pain, palpitation, fever, chills, cough, headaches, lightheadedness, syncope or loss of consciousness. Pt denies recent exposure to food allergen. However, he admits to 15years of lisinopril use without prior issues. In the ED, several attempts were made to intubate the patient which were unsuccessful. Subsequently, patient improved after IV steroids. He was then placed on BiPAP an d has been saturating well and admitted to the ICU. with bronchodilators, iv solumdrol, Pepcid and Benadryl respiratory demand improved and pt was transferred to IMCU. swelling of his lip adn throat improved further and he was place of oxygen via nasal canular but had dysphagia. Was continue with is solumdrol and now able rto tolerate his meal. He is therefore being discharged to f/u with PCP Disposition: DC-01 TO HOME OR SELFCARE Time spent for discharge: 35 mins - Discharge Diagnoses (1) Acute hypoxemic respiratory failure Status: Acute (2) Hyponatremia Status: Acute (3) Metabolic acidosis Status: Acute (4) Diabetes mellitus Status: Acute Core Measure Documentation - Palliative Care Palliative Care/ Comfort Measures: Not Applicable - Core Measures Any of the following diagnoses?: none Exam - Physical Exam Narrative exam: Constitutional: Well-nourished well-developed. Obese, Head: Normocephalic atraumatic Eyes: Pupils are equal round and reactive to light Nose: No enlarged turbinates, no septal deviation. Mouth: Moist mucous membranes. Neck: Supple no thyromegaly. No bruit. No JVD Heart: Regular rate and rhythm, S1-S2 normal. No rubs murmurs or gallop Lungs: Clear to auscultation bilaterally. no rales or rhonchi Abdomen: Soft, nontender. Bowel sound are present. Extremities: No edema, no cyanosis, no clubbing. Neuro: Alert oriented Oriented x3. No focal sensory or motor deficit. Skin: No rashes or hyperpigmented spots Musculoskeletal system: No joint pain or swelling Hematological: No petechia or subcutanous hemorrhages. Immunological: No multiple septic spots on the skin Lymphatic: No generalized lymphadenopathy Psychiatry: Euthymic. Calm. - Constitutional Vitals: Temp Pulse Resp BP Pulse Ox 98.3 F 84 14 120/49 97 07/16/19 03:48 07/16/19 08:42 07/16/19 08:42 07/16/19 04:10 07/16/19 08:41 Plan Activity: advance as tolerated Weight Bearing Status: Weight Bear as Tolerated Diet: regular Follow up with: PRIMARY CARE, [Primary Care Provider] - 3-5 Days Prescriptions: diphenhydrAMINE [Benadryl CAP] 25 mg PO Q8HR #18 capsule Metformin HCl [metFORMIN] 1,000 mg PO BID #60 Insulin NPH/Regular [NovoLIN 70/30] 100 unit SQ BID #300 units Famotidine [Pepcid] 20 mg PO BID #20 tablet
[2019-07-16] MEDS: INSULIN LISPRO 100 UNIT/ML SUB-Q SCH ×2 (08:59→13:18)
[2019-07-16] MEDS: FAMOTIDINE 20 MG/2 ML INJ IV SCH (11:08)
[2019-07-16] MEDS: ENOXAPARIN 40 MG/0.4 ML INJ SUB-Q SCH (11:08)
[2019-07-16 11:52] VITALS: BP 153/79
== END 2019-07-16 14:10 | disposition home or self-care (01) | DRG 915 ==
LOC: ED 18:20 → CC1 21:37 → IMCU 07-15 08:46
PROVIDERS: ADMIT Internal Medicine; ATTEND Family Medicine
PROC: 5A09357 Assistance with Respiratory Ventilation, Less than 24 Consecutive Hours, Continuous Positive Airway Pressure (ICD-10-PCS; 2019-07-14)
PROC: 4A033R1 Measurement of Arterial Saturation, Peripheral, Percutaneous Approach (ICD-10-PCS; principal; 2019-07-15)
PROC: 5A09357 Assistance with Respiratory Ventilation, Less than 24 Consecutive Hours, Continuous Positive Airway Pressure (ICD-10-PCS; 2019-07-15)
DX: T78.3XXA Angioneurotic edema, initial encounter (principal); J96.01 Acute respiratory failure with hypoxia; E87.1 Hypo-osmolality and hyponatremia; E87.2 Acidosis; Z68.43 Body mass index [BMI] 50.0-59.9, adult; I10 Essential (primary) hypertension; E11.9 Type 2 diabetes mellitus without complications; D72.829 Elevated white blood cell count, unspecified; E66.01 Morbid (severe) obesity due to excess calories; T44.5X5A Adverse effect of predominantly beta-adrenoreceptor agonists, initial encounter; Y92.89 Other specified places as the place of occurrence of the external cause; Z90.49 Acquired absence of other specified parts of digestive tract; Z87.891 Personal history of nicotine dependence; Z83.3 Family history of diabetes mellitus; Z88.8 Allergy status to other drugs, medicaments and biological substances
CPT/HCPCS: 36415; 36430; 36600; 71045; 80048; 80076; 82550; 82553; 82803; 82962; 83735; 83880; 85025; 85610; 85730; 86850; 86900; 86901; 93005; 93010; 94640; 94760; 99292; G0378; J0360; J1100; J1200; J1650; J1815; J2060; J2270; J2704; J2930; J7030